=== PATIENT | male | born 1940 | race Caucasian/White ===

== ENCOUNTER → 2017-07-11 | Outpatient (CLI) | payer MEDICARE, OTHER ==
[~2017-07-11] MED LIST: ANDROGEL1.25 GM; ASCO500; ASPI81CH; ATOR40TA; BISA5EC; CHRO200; Coq-1030 MG; FISH OIL 1,0001 EAC1; GAVILAX17 GM; Glucosamine Ch1 EAC4; Hair, Skin & N1 EACH; LEVSOD75; MAGCHL64ER; METF500; METO10; NATE60; RANI150; SERT25; STOOL SOFTENER100 MG; [UNRECOGNIZED DRUG - OTHER]
== END | disposition home or self-care (01) ==
LOC: LAB EV 13:15
DX: R14.3 Flatulence (principal)
CPT/HCPCS: 87338

== ENCOUNTER 2017-09-18 07:37 | Day surgery (SDC) | payer MEDICARE, OTHER ==
[~2017-09-18] VITALS: Ht 177.8 cm; Wt 77.2 kg
== END 2017-09-18 10:30 | disposition home or self-care (01) ==
LOC: ORSCSDS 07:37
PROVIDERS: Internal Medicine Gastroenterology
PROC: 0DB58ZX Excision of Esophagus, Via Natural or Artificial Opening Endoscopic, Diagnostic (ICD-10-PCS; principal; 2017-09-18 09:00)
PROC: 0DJD8ZZ Inspection of Lower Intestinal Tract, Via Natural or Artificial Opening Endoscopic (ICD-10-PCS; principal; 2017-09-18 09:00)
DX: K62.5 Hemorrhage of anus and rectum (principal); K22.70 Barrett's esophagus without dysplasia; K44.9 Diaphragmatic hernia without obstruction or gangrene; K57.30 Diverticulosis of large intestine without perforation or abscess without bleeding; Z86.010 Personal history of colon polyps; K21.9 Gastro-esophageal reflux disease without esophagitis; E11.9 Type 2 diabetes mellitus without complications; E03.9 Hypothyroidism, unspecified; E78.5 Hyperlipidemia, unspecified; G81.94 Hemiplegia, unspecified affecting left nondominant side; Z87.891 Personal history of nicotine dependence; Z79.82 Long term (current) use of aspirin; Z79.84 Long term (current) use of oral hypoglycemic drugs; Z79.899 Other long term (current) drug therapy
CPT/HCPCS: 82947; 88305; J0330; J1980; J2405

== ENCOUNTER 2019-05-03 08:05 | Day surgery (SDC) | payer MEDICARE, OTHER ==
[~2019-05-03] VITALS: Wt 82.2 kg
--- NOTE | 2019-05-03 09:33 | NUR ---
Patient up to Ambulate independently. Gait steady. Discharge instructions reviewed with patient. Patient verbalizes understanding. Copy given to patient to take home. THE PATIENT WAS TAKEN TO RADIOLOGY AND THE PROCEDURE WAS DONE, WITHOUT NITRO DUE TO SBP UNDER 120.
== END 2019-05-03 23:21 | disposition home or self-care (01) ==
LOC: ORD 08:05 → CT 08:05 → ORD 08:30
DX: I25.10 Atherosclerotic heart disease of native coronary artery without angina pectoris (principal); I10 Essential (primary) hypertension; Z86.73 Personal history of transient ischemic attack (TIA), and cerebral infarction without residual deficits; E11.9 Type 2 diabetes mellitus without complications; Z79.899 Other long term (current) drug therapy; Z79.02 Long term (current) use of antithrombotics/antiplatelets; Z79.84 Long term (current) use of oral hypoglycemic drugs; Z87.891 Personal history of nicotine dependence; Z88.1 Allergy status to other antibiotic agents
CPT/HCPCS: 75574; Q9967

== ENCOUNTER 2019-06-18 07:16 | Day surgery (SDC) | payer MEDICARE, OTHER ==
[~2019-06-18] VITALS: Ht 177.8 cm; Wt 79.0 kg
[~2019-06-18 07:16] MED LIST changes: +GLIM2 PO; -METF500; +METF500 PO; +PANT40 PO
--- NOTE | 2019-06-18 10:00 | NUR ---
ASSUMED CARE OF PT POST PROCEDURE. PT SITTING UP IN RECLINER, NO S/S OF DISTRESS. PT DENIES PAIN, SOB OR NAUSEA. MONITOR SB 50'S, B/P 119/58, AFEBRILE, SPO2 97% RA, CBG 101. R RADIAL SITE NO SWELLING/HEMATOMA, TR BAND IN PLACE 11 CC AIR.
--- NOTE | 2019-06-18 13:05 | NUR ---
PT AMB TO BATHROOM, GAIT STEADY; PT WITH GRADE I HEMATOMA IN R ARM POST ACTIVTY, MANUAL PRESSURE X 5 MIN AND TR BAND REINFLATED WITH 10 CC AIR. PT WITH GOOD CMS CHECKS TO R HAND.
--- NOTE | 2019-06-18 15:20 | NUR ---
PT AMB TO BATHROOM WITHOUT PROBLEM, R RADIAL SITE UNCHANGED AFTER ACTIVITY.
--- NOTE | 2019-06-18 16:05 | NUR ---
PT GOT DRESSED WITH ASSISTANCE FROM FAMILY, SITE UNCHANGED; TR BAND REMOVED, CLOTH DOT AND WRIST IMMOBILIZER IN PLACE. IV REMOVED-CANNULA INTACT.
--- NOTE | 2019-06-18 16:13 | NUR ---
PT, AND SON RECEIVED DISCHARGE INSTRUCTIONS, MED LIST AND "AFTER CARE" INSTRUCTIONS; VERBALIZED GOOD UNDERSTANDING. PT LEFT FACILITY VIA W/C, CONDITION STABLE.
== END 2019-06-18 16:13 | disposition home or self-care (01) ==
LOC: MHTC 07:16
PROC: B201YZZ Plain Radiography of Multiple Coronary Arteries using Other Contrast (ICD-10-PCS; principal; 2019-06-18)
PROC: 4A023N7 Measurement of Cardiac Sampling and Pressure, Left Heart, Percutaneous Approach (ICD-10-PCS; principal; 2019-06-18)
DX: I25.10 Atherosclerotic heart disease of native coronary artery without angina pectoris (principal); E11.9 Type 2 diabetes mellitus without complications; F41.9 Anxiety disorder, unspecified; I08.0 Rheumatic disorders of both mitral and aortic valves; I10 Essential (primary) hypertension; Z79.84 Long term (current) use of oral hypoglycemic drugs; Z79.899 Other long term (current) drug therapy; Z86.73 Personal history of transient ischemic attack (TIA), and cerebral infarction without residual deficits; Z79.82 Long term (current) use of aspirin; Z87.891 Personal history of nicotine dependence; Z88.1 Allergy status to other antibiotic agents
CPT/HCPCS: 82947; 93005; 93010; 93454; 99152; C1769; C1894; J1644; J2250; J3010; J7030; Q9967

== ENCOUNTER → 2020-02-15 | Outpatient (CLI) | payer MEDICARE, OTHER ==
[2020-02-15 17:33] LABS: BASOPHILS ABSOLUTE AUTO 0.04 K/mm3 (0.00-0.23); BASOPHILS PERCENT AUTO 1 % (0-2); EOSINOPHILS PERCENT AUTO 4 % (0-6); Hematocrit 36.7 % (37.0-53.0); Hemoglobin 11.9 g/dL (13.5-17.5); IMMATURE GRAN ABSOLUTE AUTO 0.02 K/mm3 (0.00-0.10); IMMATURE GRAN PERCENT AUTO 0 % (0-1); LYMPHOCYTES PERCENT AUTO 23 % (21-46); MONOCYTES ABSOLUTE AUTO 0.39 K/mm3 (0.16-1.47); MONOCYTES PERCENT AUTO 7 % (4-13); Mean Corpuscular HGB 32.5 pg (26.0-34.0); Mean Corpuscular HGB Conc 32.4 g/dL (31.5-36.5); Mean Corpuscular Volume 100 fL (80-100); Mean Platelet Volume 11.4 fL (9.1-12.4); NEUTROPHILS ABSOLUTE AUTO 3.65 K/mm3 (1.96-9.15); NEUTROPHILS PERCENT AUTO 65 % (41-73); Platelet Count 242 K/mm3 (150-400); RDW Coefficient Variation 13.2 % (11.7-14.2); RDW Standard Deviation 48.4 fL (35.1-46.3); Red Blood Cell Count 3.66 M/mm3 (4.30-5.90)
[2020-02-15 18:25] LABS: Alanine Aminotransfer (ALT/SGP 25 U/L (12-78); Albumin/Globulin Ratio 1.1 (0.8-1.8); Alk Phos 57 U/L (50-136); Anion Gap 4 mmol/L (6-16); Aspartate Aminotrans (AST/SGOT 20 U/L (12-37); Bilirubin, Total 0.4 mg/dL (0.1-1.0); Blood Urea Nitrogen 25 mg/dL (8-24); Bun/Creatinine Ratio 28.3 (12.0-20.0); CO2, Blood 30 mmol/L (21-32); Calcium, Blood 9.2 mg/dL (8.5-10.1); Chloride, Blood 105 mmol/L (98-108); Creatinine, Blood 0.88 mg/dL (0.60-1.20); Globulin, Blood 3.6 g/dL (2.2-4.0); Glomerular Filtration Rate >60 (60-); Glucose, Blood 256 mg/dL (70-99); Potassium, Blood 4.4 mmol/L (3.5-5.5); Sodium, Blood 139 mmol/L (136-145); Total Protein, Blood 7.6 g/dL (6.4-8.2)
[2020-02-16 12:42] LABS: Stool Occult Bld Immuno 1 Positive (NEGATIVE)
== END | disposition home or self-care (01) ==
LOC: LAB EV 13:00 → LAB SHORT 13:00
PROVIDERS: General Practice; Physician Assistant Medical
DX: K92.1 Melena (principal); R53.81 Other malaise
CPT/HCPCS: 80053; 82274; 84439; 84443; 85025

== ENCOUNTER → 2020-02-16 | Outpatient (CLI) | payer MEDICARE, OTHER ==
[2020-02-16 13:42] LABS: Percent Saturation 20.6 % (20.0-50.0)
== END | disposition home or self-care (01) ==
LOC: LAB SHORT 12:53 → LAB EV 12:53
PROVIDERS: General Practice
DX: D50.9 Iron deficiency anemia, unspecified (principal); D53.9 Nutritional anemia, unspecified
CPT/HCPCS: 82607; 82728; 82746; 83540; 83550

== ENCOUNTER 2020-04-28 13:22 | Day surgery (SDC) | payer MEDICARE, OTHER ==
[~2020-04-28] VITALS: Ht 177.8 cm; Wt 71.5 kg
[~2020-04-28 13:22] MED LIST changes: +ACAMPROSATE CA333 MG PO; +ATOR40TA PO; +Aspir 8181 MG PO; +LEVSOD75 PO; +PARO20 PO; +TESTOSTERONE75 GM TD
--- NOTE | 2020-04-28 14:08 | NUR ---
04/28/20 1408 Nighat Swift 1 TRY RIGHT UPPER ARM MOVED
--- NOTE | 2020-04-28 15:35 | NUR ---
04/28/20 1535 Maegan Arthur SIMETHICONE USED DURING PROCEDURE.
== END 2020-04-28 16:39 | disposition home or self-care (01) ==
LOC: ORSCSDS 13:22
PROVIDERS: Surgery
PROC: 0DBN8ZX Excision of Sigmoid Colon, Via Natural or Artificial Opening Endoscopic, Diagnostic (ICD-10-PCS; principal; 2020-04-28 14:30)
PROC: 0DJ08ZZ Inspection of Upper Intestinal Tract, Via Natural or Artificial Opening Endoscopic (ICD-10-PCS; principal; 2020-04-28 14:30)
DX: K92.1 Melena (principal); D12.5 Benign neoplasm of sigmoid colon; D50.9 Iron deficiency anemia, unspecified; K57.30 Diverticulosis of large intestine without perforation or abscess without bleeding; K31.7 Polyp of stomach and duodenum; Z87.891 Personal history of nicotine dependence; Z86.73 Personal history of transient ischemic attack (TIA), and cerebral infarction without residual deficits; E11.49 Type 2 diabetes mellitus with other diabetic neurological complication; E11.59 Type 2 diabetes mellitus with other circulatory complications; Z79.84 Long term (current) use of oral hypoglycemic drugs
CPT/HCPCS: 82947; J2704; J7120

== ENCOUNTER → 2021-07-23 | Outpatient (CLI) | payer MEDICARE, OTHER ==
[2021-07-23 18:18] LABS: Adenovirus F 40/41 Not Detected (NOT DETECT); Astrovirus Not Detected (NOT DETECT); Campylobacter Sp Not Detected (NOT DETECT); Cryptosporidium Not Detected (NOT DETECT); Cyclospora Cayetanensis Not Detected (NOT DETECT); E. Coli O157 Not Detected (NOT DETECT); Entamoeba Histolytica Not Detected (NOT DETECT); Enteroaggregative E. coli-EAEC Not Detected (NOT DETECT); Enteropathogenic E. coli-EPEC Not Detected (NOT DETECT); Enterotoxigenic E. coli-ETEC Not Detected (NOT DETECT); Giardia Lamblia Not Detected (NOT DETECT); Norovirus GI/GII Not Detected (NOT DETECT); Plesiomonas Shigelloides Not Detected (NOT DETECT); Rotavirus A Not Detected (NOT DETECT); Salmonella Sp Not Detected (NOT DETECT); Sapovirus Not Detected (NOT DETECT); Shiga Toxin-prod E. coli-STEC Not Detected (NOT DETECT); Shigella/Enteroin E. coli-EIEC Not Detected (NOT DETECT); Vibrio Cholerae Not Detected (NOT DETECT); Vibrio Sp Not Detected (NOT DETECT); Yersinia Enterocolitica Not Detected (NOT DETECT)
== END | disposition home or self-care (01) ==
LOC: LAB SHORT 15:25
PROVIDERS: Internal Medicine
DX: R19.7 Diarrhea, unspecified (principal)
CPT/HCPCS: 0097U

== ENCOUNTER → 2021-11-13 | Outpatient (CLI) | payer MEDICARE, OTHER ==
[2021-11-13 15:42] LABS: BASOPHILS ABSOLUTE AUTO 0.03 K/mm3 (0.00-0.23); BASOPHILS PERCENT AUTO 1 % (0-2); EOSINOPHILS ABSOLUTE AUTO 0.11 K/mm3 (0.00-0.68); EOSINOPHILS PERCENT AUTO 2 % (0-6); Hematocrit 35.6 % (37.0-53.0); Hemoglobin 11.8 g/dL (13.5-17.5); IMMATURE GRAN ABSOLUTE AUTO 0.03 K/mm3 (0.00-0.10); IMMATURE GRAN PERCENT AUTO 1 % (0-1); LYMPHOCYTES ABSOLUTE AUTO 1.38 K/mm3 (0.84-5.20); LYMPHOCYTES PERCENT AUTO 22 % (21-46); MONOCYTES ABSOLUTE AUTO 0.45 K/mm3 (0.16-1.47); MONOCYTES PERCENT AUTO 7 % (4-13); Mean Corpuscular HGB 31.2 pg (26.0-34.0); Mean Corpuscular HGB Conc 33.1 g/dL (31.5-36.5); Mean Corpuscular Volume 94 fL (80-100); Mean Platelet Volume 10.8 fL (9.1-12.4); NEUTROPHILS ABSOLUTE AUTO 4.17 K/mm3 (1.96-9.15); NEUTROPHILS PERCENT AUTO 68 % (41-73); Platelet Count 251 K/mm3 (150-400); RDW Coefficient Variation 13.5 % (11.7-14.2); RDW Standard Deviation 46.5 fL (35.1-46.3); Red Blood Cell Count 3.78 M/mm3 (4.30-5.90); White Blood Cell Count 6.17 K/mm3 (4.00-11.30)
[2021-11-13 15:50] LABS: Alanine Aminotransfer (ALT/SGP 45 U/L (12-78); Albumin, Blood 3.8 g/dL (3.4-5.0); Albumin/Globulin Ratio 1.1 (0.8-1.8); Alk Phos 47 U/L (40-126); Anion Gap 5 mmol/L (6-16); Aspartate Aminotrans (AST/SGOT 26 U/L (12-37); Bilirubin, Total 0.5 mg/dL (0.1-1.0); Blood Urea Nitrogen 26 mg/dL (8-24); Bun/Creatinine Ratio 28.3 (12.0-20.0); CO2, Blood 32 mmol/L (21-32); Calcium, Blood 9.4 mg/dL (8.5-10.1); Chloride, Blood 104 mmol/L (98-108); Creatinine, Blood 0.92 mg/dL (0.60-1.20); Globulin, Blood 3.4 g/dL (2.2-4.0); Glomerular Filtration Rate >60 (60-); Glucose, Blood 111 mg/dL (70-99); Potassium, Blood 4.4 mmol/L (3.5-5.5); Sodium, Blood 141 mmol/L (136-145); Total Protein, Blood 7.2 g/dL (6.4-8.2)
== END ==
LOC: LAB 15:29 → LAB SHORT 15:29
PROVIDERS: Physician Assistant
DX: R07.9 Chest pain, unspecified (principal)
CPT/HCPCS: 80053; 84484; 85025

== ENCOUNTER 2022-09-06 00:52 | Emergency (ER) | payer MEDICARE, OTHER ==
[~2022-09-06] VITALS: Ht 177.8 cm; Wt 63.5 kg
[2022-09-06 02:01] LABS: BASOPHILS ABSOLUTE AUTO 0.02 K/mm3 (0.00-0.23); BASOPHILS PERCENT AUTO 0 % (0-2); EOSINOPHILS ABSOLUTE AUTO 0.01 K/mm3 (0.00-0.68); EOSINOPHILS PERCENT AUTO 0 % (0-6); Hematocrit 32.4 % (37.0-53.0); Hemoglobin 10.6 g/dL (13.5-17.5); IMMATURE GRAN ABSOLUTE AUTO 0.02 K/mm3 (0.00-0.10); IMMATURE GRAN PERCENT AUTO 0 % (0-1); LYMPHOCYTES ABSOLUTE AUTO 1.02 K/mm3 (0.84-5.20); LYMPHOCYTES PERCENT AUTO 21 % (21-46); MONOCYTES PERCENT AUTO 16 % (4-13); Mean Corpuscular HGB 31.7 pg (26.0-34.0); Mean Corpuscular HGB Conc 32.7 g/dL (31.5-36.5); Mean Corpuscular Volume 97 fL (80-100); Mean Platelet Volume 10.4 fL (9.1-12.4); NEUTROPHILS ABSOLUTE AUTO 3.02 K/mm3 (1.96-9.15); NEUTROPHILS PERCENT AUTO 62 % (41-73); Platelet Count 228 K/mm3 (150-400); RDW Coefficient Variation 14.2 % (11.7-14.2); RDW Standard Deviation 50.8 fL (35.1-46.3); Red Blood Cell Count 3.34 M/mm3 (4.30-5.90); White Blood Cell Count 4.89 K/mm3 (4.00-11.30)
[2022-09-06 02:12] LABS: Albumin, Blood 3.3 g/dL (3.4-5.0); Albumin/Globulin Ratio 0.8 (0.8-1.8); Bilirubin, Total 0.3 mg/dL (0.1-1.0); Calcium, Blood 8.9 mg/dL (8.5-10.1); Creatinine, Blood 0.6 mg/dL (0.60-1.20); Globulin, Blood 4.4 g/dL (2.2-4.0); Potassium, Blood 3.8 mmol/L (3.5-5.5); Total Protein, Blood 7.7 g/dL (6.4-8.2)
[2022-09-06 02:22] LABS: Influenza A, PCR NEGATIVE (NEGATIVE); Influenza B, PCR NEGATIVE (NEGATIVE); Resp Syncytial Virus, PCR NEGATIVE (NEGATIVE)
[2022-09-06 03:35] LABS: SARS-Cov-2 (COVID-19) PCR, MMC POSITIVE (NEGATIVE)
== END 2022-09-06 06:07 | disposition home or self-care (01) ==
LOC: ER 00:52
PROVIDERS: Student in an Organized Health Care Education/Training Program
DX: U07.1 COVID-19 (principal); R19.7 Diarrhea, unspecified; Z88.1 Allergy status to other antibiotic agents; Z79.899 Other long term (current) drug therapy; Z79.82 Long term (current) use of aspirin; Z87.891 Personal history of nicotine dependence
CPT/HCPCS: 0241U; 36415; 80053; 85025; 93005; 93010; 96365; 99285-25; J3475; J7030

== ENCOUNTER 2022-11-05 15:19 | Emergency (ER) | payer MEDICARE, OTHER ==
[~2022-11-05] VITALS: Ht 177.8 cm; Wt 74.8 kg
[2022-11-05 15:33] VITALS: BP 126/75
== END 2022-11-05 15:49 | disposition home or self-care (01) ==
LOC: ER 15:19
DX: T83.091A Other mechanical complication of indwelling urethral catheter, initial encounter (principal); E03.9 Hypothyroidism, unspecified; Z88.1 Allergy status to other antibiotic agents; Z79.82 Long term (current) use of aspirin; Z79.899 Other long term (current) drug therapy; X58.XXXA Exposure to other specified factors, initial encounter
CPT/HCPCS: 99282

== ENCOUNTER 2022-12-13 12:01 | Emergency (ER) | payer MEDICARE, OTHER ==
[~2022-12-13] VITALS: Ht 177.8 cm; Wt 61.2 kg
[2022-12-13 12:50] LABS: Source, Urine Foley catheter
[2022-12-13 12:52] LABS: Bilirubin, Urine Neg (Neg); Blood, Urine 2+ (Neg); Glucose Qualitative, Urine Neg (Neg); Ketones, Urine Neg (Neg); Leukocyte Esterase, Urine 3+ (Neg); Nitrite, Urine Neg (Neg); Protein, Urine 1+ (Neg); Urobilinogen, Urine NORM (Normal); pH, Urine 6.5 (5.0-8.0)
[2022-12-13 13:35] LABS: Appearance, Urine Hazy (Clear); Color, Urine Yellow (P-Yellow)
[2022-12-13 13:37] LABS: Bacteria Rare /hpf; Squamous Epithelial Cells Not Seen /hpf (Few); White Blood Cells, Urine 25-50 /hpf (0-5)
[2022-12-13] MEDS ORDERED: CIPR500 PO (13:44)
[2022-12-13 14:15] VITALS: BP 146/87
== END 2022-12-13 14:11 | disposition home or self-care (01) ==
LOC: ER 12:01
PROVIDERS: Student in an Organized Health Care Education/Training Program
DX: R33.9 Retention of urine, unspecified (principal); N39.0 Urinary tract infection, site not specified; E03.9 Hypothyroidism, unspecified; Z79.899 Other long term (current) drug therapy; Z79.890 Hormone replacement therapy; Z79.82 Long term (current) use of aspirin; Z79.84 Long term (current) use of oral hypoglycemic drugs; Z88.8 Allergy status to other drugs, medicaments and biological substances; Z87.891 Personal history of nicotine dependence; Z96.0 Presence of urogenital implants
CPT/HCPCS: 51702; 51798; 81001; 99283-25

== ENCOUNTER → 2023-02-23 | Outpatient (CLI) | payer MEDICARE, OTHER ==
[~2023-02-23] MED LIST changes: +CIPR500 PO
[2023-02-23 12:57] LABS: Appearance, Urine Hazy (Clear); Bilirubin, Urine Neg (Neg); Blood, Urine 3+ (Neg); Color, Urine Yellow (P-Yellow); Glucose Qualitative, Urine Neg (Neg); Ketones, Urine Neg (Neg); Leukocyte Esterase, Urine 3+ (Neg); Nitrite, Urine Neg (Neg); Protein, Urine 1+ (Neg); Urobilinogen, Urine NORM (Normal)
[2023-02-23 13:06] LABS: Amorphous Heavy (0-Heavy); White Blood Cells, Urine 50-100 /hpf (0-5)
[2023-02-23 13:10] LABS: Bacteria Many /hpf; Squamous Epithelial Cells Rare /hpf (Few)
== END | disposition home or self-care (01) ==
LOC: LAB SHORT 10:45 → LAB 10:45
PROVIDERS: Student in an Organized Health Care Education/Training Program
DX: J84.10 Pulmonary fibrosis, unspecified (principal)
CPT/HCPCS: 81001

== ENCOUNTER 2023-04-13 18:14 | Inpatient (IN) | payer MEDICARE, OTHER ==
[~2023-04-13] VITALS: Ht 177.8 cm; Wt 46.4 kg
[~2023-04-13 18:14] MED LIST changes: -DOCUZEN 8.6-501 EACH PO; -FLUT.05NI; -FLUTICASONE-SA1 EAC8 INH; -LEVO-T75 MC1 PO; -MORP20L SL; -PROM25 PR; -TRANSDERM-SCOP1 EAC1 TD; -Ventolin/Prove6.7 GM INH
[2023-04-13 19:23] LABS: Albumin/Globulin Ratio 0.6 (0.8-1.8); Bilirubin, Total 0.3 mg/dL (0.1-1.0); Bun/Creatinine Ratio 47.4 (12.0-20.0); Calcium, Blood 8.7 mg/dL (8.5-10.1); Creatinine, Blood 1.14 mg/dL (0.60-1.20); Magnesium, Blood 1.8 mg/dL (1.6-2.4); Phosphorus, Blood 2.7 mg/dL (2.5-4.9); Potassium, Blood 3.8 mmol/L (3.5-5.5); Thyroid Stimulating Hormone 2.66 uIU/mL (0.360-4.800); Uric Acid, Blood 6.9 mg/dL (3.5-7.2)
[2023-04-13 19:31] LABS: BASOPHILS ABSOLUTE AUTO 0.02 K/mm3 (0.00-0.23); BASOPHILS PERCENT AUTO 0 % (0-2); EOSINOPHILS ABSOLUTE AUTO 0.01 K/mm3 (0.00-0.68); EOSINOPHILS PERCENT AUTO 0 % (0-6); Hematocrit 39.2 % (37.0-53.0); Hemoglobin 12.7 g/dL (13.5-17.5); IMMATURE GRAN ABSOLUTE AUTO 0.08 K/mm3 (0.00-0.10); IMMATURE GRAN PERCENT AUTO 1 % (0-1); LYMPHOCYTES PERCENT AUTO 7 % (21-46); MONOCYTES ABSOLUTE AUTO 0.44 K/mm3 (0.16-1.47); MONOCYTES PERCENT AUTO 6 % (4-13); Mean Corpuscular HGB Conc 32.4 g/dL (31.5-36.5); Mean Corpuscular Volume 96 fL (80-100); NEUTROPHILS ABSOLUTE AUTO 6.07 K/mm3 (1.96-9.15); NEUTROPHILS PERCENT AUTO 85 % (41-73); RDW Coefficient Variation 16.4 % (11.7-14.2); RDW Standard Deviation 58.3 fL (35.1-46.3); White Blood Cell Count 7.12 K/mm3 (4.00-11.30)
[2023-04-13 21:01] LABS: International Normalized Ratio 1.08; Prothrombin Time Results 11.3 Sec (9.7-11.5)
[2023-04-13 21:07] LABS: Source, Urine Clean Catch
[2023-04-13 21:15] LABS: Influenza A, PCR NEGATIVE (NEGATIVE); Influenza B, PCR NEGATIVE (NEGATIVE); Resp Syncytial Virus, PCR NEGATIVE (NEGATIVE); SARS-Cov-2 (COVID-19) PCR, MMC NEGATIVE (NEGATIVE)
[2023-04-13 21:31] LABS: Bilirubin, Urine Neg (Neg); Blood, Urine 5+ (Neg); Glucose Qualitative, Urine 2+ (Neg); Ketones, Urine 2+ (Neg); Leukocyte Esterase, Urine 3+ (Neg); Nitrite, Urine Neg (Neg); Protein, Urine 2+ (Neg); Urobilinogen, Urine NORM (Normal)
[2023-04-13 21:56] LABS: Appearance, Urine Cloudy (Clear); Color, Urine Yellow (P-Yellow)
[2023-04-13 21:58] LABS: Bacteria Many /hpf; Squamous Epithelial Cells Few /hpf (Few); White Blood Cells, Urine 50-100 /hpf (0-5)
[2023-04-14 01:22] VITALS: BP 123/77
[2023-04-14 04:50] LABS: BASOPHILS ABSOLUTE AUTO 0.02 K/mm3 (0.00-0.23); BASOPHILS PERCENT AUTO 0 % (0-2); EOSINOPHILS PERCENT AUTO 0 % (0-6); Hematocrit 36.8 % (37.0-53.0); Hemoglobin 11.9 g/dL (13.5-17.5); IMMATURE GRAN ABSOLUTE AUTO 0.06 K/mm3 (0.00-0.10); IMMATURE GRAN PERCENT AUTO 1 % (0-1); LYMPHOCYTES ABSOLUTE AUTO 0.34 K/mm3 (0.84-5.20); LYMPHOCYTES PERCENT AUTO 3 % (21-46); MONOCYTES ABSOLUTE AUTO 0.45 K/mm3 (0.16-1.47); MONOCYTES PERCENT AUTO 4 % (4-13); Mean Corpuscular HGB Conc 32.3 g/dL (31.5-36.5); Mean Corpuscular Volume 96 fL (80-100); Mean Platelet Volume 11.6 fL (9.1-12.4); NEUTROPHILS ABSOLUTE AUTO 11.89 K/mm3 (1.96-9.15); NEUTROPHILS PERCENT AUTO 93 % (41-73); Platelet Count 238 K/mm3 (150-400); RDW Coefficient Variation 16.5 % (11.7-14.2); RDW Standard Deviation 58.1 fL (35.1-46.3); Red Blood Cell Count 3.84 M/mm3 (4.30-5.90); White Blood Cell Count 12.76 K/mm3 (4.00-11.30)
[2023-04-14 05:16] LABS: Albumin/Globulin Ratio 0.6 (0.8-1.8); Bilirubin, Total 0.4 mg/dL (0.1-1.0); Calcium, Blood 9.3 mg/dL (8.5-10.1); Creatinine, Blood 0.92 mg/dL (0.60-1.20); Globulin, Blood 4.9 g/dL (2.2-4.0); Total Protein, Blood 7.9 g/dL (6.4-8.2)
--- NOTE | 2023-04-14 07:29 | NUR ---
SHIFT SUMMARY PT ARRIVED ON UNIT AT 0105, PT VERY CONFUSED AN UNABLE TO PROVIDE ADMISSION HISTORY AND MEDICATIONS. PT INCONTINENT OF SEVERAL LOOSE STOOLS PRINCE IN PLACE AND PER ER REPORT THIS HAS ALREADY BEEN CHANGED OUT HERE.
[2023-04-14 07:31] VITALS: BP 113/72
[2023-04-14 15:34] VITALS: BP 99/66
--- NOTE | 2023-04-14 17:44 | NUR ---
SHIFT SUMMARY PATIENT CONTINUES TO HAVE EPISODES OF CONFUSION. PATIENT PULLED OUT HIS IV AT START OF SHIFT AND UNSURE WHERE HE WAS AT. PATIENT COOPERATIVE WITH CARE. PATIENT ABLE TO ASSIST WITH TURNING AND REPOSITIONING. PATIENT WORKED WITH PT AND OT DURING THE SHIFT AND WAS UP IN CHAIR FOR PART OF THE DAY. PATIENT CONTINUES TO HAVE INCONTINENCE OF STOOL THROUGHOUT SHIFT. STOOL DARK. PATIENT COMPLAINING OF PAIN THIS AFTERNOON. FAMILY PRESENT AND FELT IT WAS HIS ABDOMIN. WITH PALPATION, FOUND TO BE L HIP JOINT. PATIENT MEDICATED WITH TORADOL. FAMILY EDUCATED RELATED CURRENT SITUATION, MEDICATIONS, AND CONCERNS.
[2023-04-14 19:12] VITALS: BP 127/76
--- NOTE | 2023-04-15 03:12 | NUR ---
SHIFT REPOART , PT RESTED IN BED DURING THE NIGHT HAD A BM . PT REPOSITIONED. PTS SON AND HERE TO VIST FOR A WHILE, SON AT ONE TIME LEFT MOTHER TO VISIT AND WENT TO DO SOME ERRONDS. PTS SITTING IN CHAIR CRYING SHE WAS VERY WORRIED ABOUT HER HUBAND. THEN A WHILE LATER WHO SEEMS TO BE CONFUSED WAS UP AT DOORWAY BUT INCORAGED TO STAY WITH HER FOR FEAR SHE WOULD WANDER AND GET LOST. SON CAME BACK AND SAT AT BED SIDE FOR A SHORT TIME THEN TOOK MOTHER HOME. SON CALLED LATER AT 0200 TO SEE HOW HIS DAD WAS SND IF ANY UPDATES ON TESTS, NOT SURE WHAT TEST OR WHEN THEY WERE TQKEN. PT TO HAVE SPEACH EVAL POSSIBLY TO [facility] BUT UNSUER OF TIME OR SURETY IT WOULD BE DONE TOLD SONE BETTER TO ARUN LATE IN AM OR AFTERNOON TO FIND OUT MORE INFO.
[2023-04-15 05:01] VITALS: BP 123/76
[2023-04-15 05:25] LABS: BASOPHILS ABSOLUTE AUTO 0.01 K/mm3 (0.00-0.23); BASOPHILS PERCENT AUTO 0 % (0-2); EOSINOPHILS ABSOLUTE AUTO 0.05 K/mm3 (0.00-0.68); EOSINOPHILS PERCENT AUTO 1 % (0-6); Hematocrit 35.7 % (37.0-53.0); Hemoglobin 11.5 g/dL (13.5-17.5); IMMATURE GRAN ABSOLUTE AUTO 0.02 K/mm3 (0.00-0.10); IMMATURE GRAN PERCENT AUTO 0 % (0-1); LYMPHOCYTES ABSOLUTE AUTO 0.85 K/mm3 (0.84-5.20); LYMPHOCYTES PERCENT AUTO 10 % (21-46); MONOCYTES ABSOLUTE AUTO 0.44 K/mm3 (0.16-1.47); MONOCYTES PERCENT AUTO 5 % (4-13); Mean Corpuscular HGB 31.3 pg (26.0-34.0); Mean Corpuscular HGB Conc 32.2 g/dL (31.5-36.5); Mean Corpuscular Volume 97 fL (80-100); Mean Platelet Volume 11.3 fL (9.1-12.4); NEUTROPHILS ABSOLUTE AUTO 6.98 K/mm3 (1.96-9.15); NEUTROPHILS PERCENT AUTO 84 % (41-73); Platelet Count 227 K/mm3 (150-400); RDW Coefficient Variation 16.9 % (11.7-14.2); RDW Standard Deviation 60.5 fL (35.1-46.3); Red Blood Cell Count 3.68 M/mm3 (4.30-5.90); White Blood Cell Count 8.35 K/mm3 (4.00-11.30)
[2023-04-15 06:42] LABS: Albumin, Blood 2.8 g/dL (3.4-5.0); Albumin/Globulin Ratio 0.6 (0.8-1.8); Bilirubin, Total 0.4 mg/dL (0.1-1.0); Bun/Creatinine Ratio 44.5 (12.0-20.0); Calcium, Blood 9.3 mg/dL (8.5-10.1); Creatinine, Blood 0.88 mg/dL (0.60-1.20); Globulin, Blood 4.8 g/dL (2.2-4.0); Total Protein, Blood 7.6 g/dL (6.4-8.2)
[2023-04-15 07:19] VITALS: BP 122/78
[2023-04-15 13:45] LABS: Stool Occult Blood Guaiac 1 Neg (Neg)
--- NOTE | 2023-04-15 14:25 | NUR ---
Met with pt's son in my office. Pt's and son came to visit today, but pt's has severe dementia and son Matt declined to talk in front of her. According to Dr. Lewis, there is concern for return of esophageal cancer due to weight loss and oropharangeal dysphagia. Pt's son agrees, reports pt has lost "so much" weight over the past few months he is "barely recognizeable". Son Matt states he "doesn't want dad to suffer", and requests we begin comfort care. Received comfort care orders, placed in chart. Pt's son is looking for placement at this time. Will remain available.
--- NOTE | 2023-04-15 19:48 | NUR ---
SHIFT SUMMARY PT A/OX2. PT/FAMILY MET WITH PALLIATIVE CARE TODAY AND SWITCHED PT TO COMFORT CARE. PT IS SOMETIME ABLE TO USE CALL LIGHT. PT LETHARGIC AND SLEEPING T/O THE DAY. DARK URINE OUTPUT. PRIOR TO COMOFRT CARE SENT STOOL SMAMPLE FOR POSSIBLE GI BLEED. BEDSIDE SWALLOW EVAL FAILED AND MADE NPO. COMFORT CARE ORDERS PLACED. GAVE PT FENTANYL AND MORPHINE FOR PAIN. PT REPORTING 10/10 PAIN IN NECK. PAIN MEDS GOOD EFFICACY.
--- NOTE | 2023-04-16 03:50 | NUR ---
SHIFT SUMMERY. PT RESTING IN BED. PTS SON STAED FAMILY COMMING TO SEE PT [place] AND WANTED TO KNOW HOW MEDS GIVEN FOR COMFORT CARE. SON DOSE NOT WANT FATHER IN PAIN BUT WOULD LIKE PT TO BE ABLE TO VISIT FAMILY COMMING TO SEE HIM IF POSIBLE. TOLD SON PT WOULD BE COMFORTABLE BUT WOULD TRY TO NOT OVERLY SEDATE HIM. PT MEDIATED WHEN HE SEEMED UNCOMFORTBLE. ASKED PT LATER THSI NIGHT IF HE WAS IN PAIN AND PT STATED NO HE DID NOT NEED ANYTHING FOR PAIN. PT APPEARS TO BE ASLEEP AT THIS TIME AND SEEMS TO BE COMFORTABLE. CALL LIGHT IN REACH.
--- NOTE | 2023-04-16 16:24 | NUR ---
Pt on comfort care today, and he appears relaxed, states he's happy to have family here to see him today. No changes needed to care plan at this time.
--- NOTE | 2023-04-16 19:17 | NUR ---
SHIFT SUMMARY PATIENT ON COMFORT FAMILY. FAMILY IN AND OUT. PATIENT ABLE TO VERBALIZE NEEDS WHEN AWAKE. PATIENT USING ORAL SUCTION NEEDED. FAMILY AND PATIENT EDUCATED ON HOSPICE AND COMFORT CARE. PATIENT MEDICATED FOR PAIN NEEDED. PATIENT CONTINUES TO PASS DARK STOOLS.
[2023-04-17] MEDS ORDERED: LEVO-T75 MC1 PO (00:29)
[2023-04-17] MEDS ORDERED: Ventolin/Prove6.7 GM INH (00:31)
[2023-04-17] MEDS ORDERED: FLUTICASONE-SA1 EAC8 INH (00:31)
[2023-04-17] MEDS ORDERED: DOCUZEN 8.6-501 EACH PO (00:32)
[2023-04-17] MEDS ORDERED: FLUT.05NI (00:33)
--- NOTE | 2023-04-17 04:45 | NUR ---
SHIFT SUMMARY NOC PT ON COMFORT CARE. SLEPT ENTIRETY OF SHIFT. NO ACUTE CHANGES TO REPORT. PT REPOSITIONED Q2H/PRN. PT HAS PRINCE IN PLACE WITH SCANT DARK YELLOW OUTPUT. PT IS CURRENTLY RESTING WITH BED IN LOWEST POSITION, AND CALL LIGHT WITHIN REACH.
--- NOTE | 2023-04-17 11:44 | NUR ---
VERBAL FROM DR. MORAN TO DC ALL PO MEDS, PLACE ORDER FOR EXISTING PRINCE CATHETER, PLACE ORDER FOR BISACODYL SUPPOSITORY DAILY PRN.
--- NOTE | 2023-04-17 13:57 | NUR ---
Pt's son is going to meet with facility today to look at placement for the patient and his . We discussed hospice again today, and son states he would prefer his dad stay here in the hospital until he passes away. I explained to the son the pt will need to discharge on hospice, either to his home or the new facility, as the hospital is not the appropriate setting for end of life. Besides, the pt does not appear to be imminent. Son verbalizes understanding. records manager aware.
--- NOTE | 2023-04-17 16:53 | NUR ---
Pt is going home tomorrow with [facility]. His family is very supportive, and also currently caring for their mom, pt's who has dementia. They have chosen [facility]. Pt is no longer eating, and drinking only sips of fluids due to extreme choking risk. Pain is well managed at this time. Pt is on Comfort Care, and will transition to hospice.
--- NOTE | 2023-04-17 18:47 | NUR ---
SUMMARY- AAOX4. BEDREST. PAIN WELL CONTROLLED W/EMAR PAIN MEDS. PT TOLERATED MECH SOFT DIET AND THIN LIQUIDS. ADAT. X2 ASSIST IN BED.
--- NOTE | 2023-04-18 04:46 | NUR ---
SHIFT SUMMARY PT IS CURRENTLY ON COMFORT CARE. MEDICATED PER EMAR. PROVIDED ORAL CARE Q4. PT IS ABLE TO SUCTION SELF. PT ALERT BUT SEEMS SLIGHTLY CONFUSED OR WITHDRAWN AT TIMES. PROVIDED PT WITH FLUIDS AND BROTH. PT TOOK A FEW SIPS BUT COUGHS A LOT. PT COMPLAINED OF CONSTIPATION EALRY IN THE SHIFT BUT PASSED A SMALL BOWEL MOVEMENT WHICH CLEARED UP HIS DISCOMFORT. PRINCE IN PLACE DRAINING SMALL AMOUNTS OF DARK YELLOW URINE. FAMILY AT BEDSIDE AT BEGINNING OF SHIFT. BED ALARM SET WITH CALL LIGHT WITHIN REACH. BED IN THE LOWEST POSITION. WILL CONTINUE TO MONITOR.
--- NOTE | 2023-04-18 09:36 | NUR ---
Spiritual Care Visit - Comfort Care Pt. is in bed resting with his eyes partially closed. Pt. displays evidence of being weak and exhausted. He also displays that he is aware of my presence yet does not rouse after I called his name several times. I prayed the Vibha reynoldsly blessing of Numbers [phone] over the Pt. This logistics operations director will remain available to the Pt. and family.
--- NOTE | 2023-04-18 11:00 | NUR ---
"Spiirtual Care | Follow up Family are now present and welcome my check-in. Spouse who displays evidence of confusion is present, This type cutter focused care and support on the spouse. Family verbalized expectation to have Pt. discharged home on hospice this afternoon. Palliate Care Nurse Donovan met with Pts. sons. Family verbalized gratitude for the spiritual care visit. Will continue to monitor Pt. and family."
--- NOTE | 2023-04-18 11:07 | NUR ---
Received call from RN Packing Line Operator Nury reporting Pt to D/C today with hospice services. Pt will need POLST completed. Breif supportive visit. Pt resting in bed and appears significantly weak. Pt appears comfortable with no S/S of distress at this time. Met with 2 sons out in [place] and completed POLST. Dr Abbott signs POLST. Sent copy of POLST to medical records. Placed copy of POLST in Pt's paper chart for transport. Provided orginal POLST to family and instructed to hang on refridgerator at home. Provided copy of POLST to family to give hospice. No concerns reported at this time. Palliative Care will remain available
[2023-04-18] MEDS ORDERED: MORP20L SL (12:49)
[2023-04-18] MEDS ORDERED: TRANSDERM-SCOP1 EAC1 TD (12:50)
[2023-04-18] MEDS ORDERED: PROM25 PR (12:50)
--- NOTE | 2023-04-18 16:02 | NUR ---
"Spiritual Care | EOL Pt. is non responsive, and his nurse cancelled a transfer for hospice. Spouse, children,and other family are at bedside. Life-stories are facilitated and anticipatory grief support is initiated. Pt. passed as scripture is being read. Two nurses confirm demise. Family gathered at bedside for a final blassing and benediction. Family has chosen [facility] for their home."
== END 2023-04-18 15:27 | disposition hospice, home (50) | DRG 177 ==
LOC: ER 18:14 → MEDS 04-14 00:15
PROVIDERS: Emergency Medicine; Student in an Organized Health Care Education/Training Program; ADMIT Internal Medicine
DX: J69.0 Pneumonitis due to inhalation of food and vomit (principal); E43 Unspecified severe protein-calorie malnutrition; N39.0 Urinary tract infection, site not specified; J44.0 Chronic obstructive pulmonary disease with (acute) lower respiratory infection; Z68.1 Body mass index [BMI] 19.9 or less, adult; R64 Cachexia; Z51.5 Encounter for palliative care; J98.2 Interstitial emphysema; E86.0 Dehydration; K59.09 Other constipation; E03.9 Hypothyroidism, unspecified; R62.7 Adult failure to thrive; B95.2 Enterococcus as the cause of diseases classified elsewhere; E78.5 Hyperlipidemia, unspecified; E11.9 Type 2 diabetes mellitus without complications; D64.9 Anemia, unspecified; Z85.810 Personal history of malignant neoplasm of tongue; Z85.01 Personal history of malignant neoplasm of esophagus; Z79.82 Long term (current) use of aspirin; Z79.84 Long term (current) use of oral hypoglycemic drugs; Z79.899 Other long term (current) drug therapy; Z90.89 Acquired absence of other organs; Z98.890 Other specified postprocedural states; Z88.8 Allergy status to other drugs, medicaments and biological substances
CPT/HCPCS: 0241U; 36415; 71260; 74022; 74177; 80053; 81001; 82272; 83605; 83690; 83735; 83880; 84100; 84145; 84443; 84484; 84550; 85025; 85610; 85730; 87040; 87077; 87086; 87147; 87186; 92610; 93005; 93010; 96365; 96375; 97110; 97161; 97167; 97530; 97535; 99285-25; A9270; C9113; J0290; J0456; J0696; J1650; J1885; J2270; J3010; J7030; J7050; J7070; Q9967

== ENCOUNTER → 2023-04-13 | Outpatient (CLI) | payer MEDICARE, OTHER ==
[~2023-04-13] MED LIST changes: +DOCUZEN 8.6-501 EACH PO; +FLUT.05NI; +FLUTICASONE-SA1 EAC8 INH; +LEVO-T75 MC1 PO; +MORP20L SL; +PROM25 PR; +TRANSDERM-SCOP1 EAC1 TD; +Ventolin/Prove6.7 GM INH
[2023-04-13 16:27] LABS: BASOPHILS ABSOLUTE AUTO 0.01 K/mm3 (0.00-0.23); BASOPHILS PERCENT AUTO 0 % (0-2); EOSINOPHILS ABSOLUTE AUTO 0.02 K/mm3 (0.00-0.68); EOSINOPHILS PERCENT AUTO 0 % (0-6); Hematocrit 40.5 % (37.0-53.0); Hemoglobin 12.8 g/dL (13.5-17.5); IMMATURE GRAN ABSOLUTE AUTO 0.01 K/mm3 (0.00-0.10); IMMATURE GRAN PERCENT AUTO 0 % (0-1); LYMPHOCYTES ABSOLUTE AUTO 0.67 K/mm3 (0.84-5.20); LYMPHOCYTES PERCENT AUTO 10 % (21-46); MONOCYTES ABSOLUTE AUTO 0.46 K/mm3 (0.16-1.47); MONOCYTES PERCENT AUTO 7 % (4-13); Mean Corpuscular HGB 30.9 pg (26.0-34.0); Mean Corpuscular HGB Conc 31.6 g/dL (31.5-36.5); Mean Corpuscular Volume 98 fL (80-100); Mean Platelet Volume 10.8 fL (9.1-12.4); NEUTROPHILS ABSOLUTE AUTO 5.55 K/mm3 (1.96-9.15); NEUTROPHILS PERCENT AUTO 83 % (41-73); Platelet Count 253 K/mm3 (150-400); RDW Coefficient Variation 16.5 % (11.7-14.2); RDW Standard Deviation 59.7 fL (35.1-46.3); Red Blood Cell Count 4.14 M/mm3 (4.30-5.90); White Blood Cell Count 6.72 K/mm3 (4.00-11.30)
[2023-04-13 16:38] LABS: Albumin, Blood 3.5 g/dL (3.4-5.0); Albumin/Globulin Ratio 0.7 (0.8-1.8); Bilirubin, Total 0.5 mg/dL (0.1-1.0); Bun/Creatinine Ratio 37.9 (12.0-20.0); Calcium, Blood 10.5 mg/dL (8.5-10.1); Creatinine, Blood 1.69 mg/dL (0.60-1.20); Globulin, Blood 5.3 g/dL (2.2-4.0); Magnesium, Blood 1.9 mg/dL (1.6-2.4); Potassium, Blood 4.9 mmol/L (3.5-5.5); Total Protein, Blood 8.8 g/dL (6.4-8.2)
== END ==
LOC: LAB 16:22 → LAB SHORT 16:22
PROVIDERS: Emergency Medicine
DX: R53.83 Other fatigue (principal)
CPT/HCPCS: 80053; 83735; 85025; 87077; 87086; 87147; 87186

== ENCOUNTER → 2023-04-13 | Outpatient (CLI) | payer MEDICARE, OTHER | END | disposition home or self-care (01) | LOC: LAB 18:01 → LAB SHORT 18:01 | DX: R53.83 Other fatigue (principal) | CPT/HCPCS: 87077; 87086; 87147; 87186 ==